=== PATIENT | female | born 1990 | race Caucasian/White ===

== ENCOUNTER 2017-09-06 18:05 | Emergency (ER) | payer OTHER ==
[~2017-09-06 18:05] MED LIST: QUET300T18 PO
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
[2017-09-06 18:57] LABS: PLATELET COUNT, AUTOMATED 291 K/uL (150-450)
[2017-09-06] MEDS ORDERED: NICOTINE 21 MG/24 HR PATCH TD ONE (19:10)
[2017-09-06 20:31] VITALS: BP 124/86
== END 2017-09-06 20:46 ==
LOC: ER 18:10
DX: R45.851 Suicidal ideations (principal); F32.9 Major depressive disorder, single episode, unspecified; F43.10 Post-traumatic stress disorder, unspecified; Z91.410 Personal history of adult physical and sexual abuse
CPT/HCPCS: 36415; 80305; 80320; 80329; 81001; 81025; 82040; 82247; 82310; 82374; 82435; 82565; 82947; 83735; 84075; 84132; 84155; 84295; 84443; 84450; 84460; 84520; 85025; 99284

== ENCOUNTER 2017-09-06 19:51 | Inpatient (IN) | payer OTHER ==
[~2017-09-06] VITALS: Ht 167.6 cm; Wt 52.2 kg
[2017-09-06] MEDS ORDERED: ACETAMINOPHEN 325 MG TAB PO PRN (20:50)
[2017-09-06] MEDS ORDERED: MAG HYD/AL HYD/SIMETH 30ML UDC PO PRN (20:50)
[2017-09-06] MEDS ORDERED: DIAZEPAM 10 MG TAB PO PRN (20:55)
[2017-09-06] MEDS ORDERED: DIAZEPAM 10 MG TAB PO ONE (22:00)
[2017-09-06] MEDS: NICOTINE CARTRIDGE 1 EA PO PRN (22:06)
[2017-09-06] MEDS: NICOTINE INH SYSTEM 10 MG/INH INH PRN (22:07)
[2017-09-06 23:16] VITALS: BP 120/72
[2017-09-07 06:34] VITALS: BP 120/70
[2017-09-07] MEDS: MULTIVITAMINS PO SCH (08:09)
[2017-09-07] MEDS ORDERED: NICOTINE 21 MG/24 HR PATCH TD SCH (09:00)
[2017-09-07] MEDS: NICOTINE INH SYSTEM 10 MG/INH INH PRN ×5 (09:36→17:09)
[2017-09-07] MEDS: NICOTINE CARTRIDGE 1 EA PO PRN ×2 (09:37→15:40)
[2017-09-07 11:00] VITALS: BP 104/72
[2017-09-07] MEDS ORDERED: NEOMYCIN/POLYMYX/BACITR 30 GM TP PRN (14:15)
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
[2017-09-07] MEDS: hydrOXYzine PAMOATE 25 MG CAP PO PRN ×2 (16:07→23:06)
[2017-09-07 17:50] VITALS: BP 112/60
[2017-09-07] MEDS ORDERED: PARoxetine HCL 20 MG TAB PO SCH (21:00)
[2017-09-08 06:20] VITALS: BP 112/66
[2017-09-08] MEDS: hydrOXYzine PAMOATE 25 MG CAP PO PRN (08:03)
[2017-09-08] MEDS: MULTIVITAMINS PO SCH (08:03)
[2017-09-08] MEDS: NICOTINE INH SYSTEM 10 MG/INH INH PRN ×2 (08:11→10:59)
--- NOTE | 2017-09-08 08:54 | BHS Progress Note ---
[facility] - Subjective Progress Notes Subjective "I need to get back to school." Requesting to be discharged, reports having nicotine withdrawal (use of nicotine inhaler) and needs to return to class Saturday09/09/17. Reports last suicidal ideation last night, discusses "If I could do it I would just call the administrative resident, but I'm not going to do that so no." Denies current suicidal ideation although states, "I have a hard time seeing a way out of this." Discussion of previous roommate the unhealthy relationship led to worsening depression. Lengthy review of outpatient follow up with established therapist, Ainsley Burch, appt. 09/10/17, EMDR as well as need for outpatient psychiatric provider. Reports Hydroxyzine for anxiety caused sedation, review Paxil risks, benefits, alternatives and she would like to continue to give fair trial. Suicidal Ideation: None Homicidal Ideation: None [facility] - Objective Physical Exam Muscle Strength and Tone: WNL Gait and Station: Steady [facility] Medications Reviewed: Side Effects, Benefits of Medication, Risks Allergies Reviewed: Yes Mental Status Exam General Appearance: Casual, Well Groomed, Good Eye Contact, Cooperative, Polite , Good Interaction Speech: Clear, Spontaneous, Normal Rate, Normal Rhythm, Normal Volume, Normal Tone Mood: Dysthmic/Depressed Affect: Full and Appropriate, Calm Thought Process: Organized Thought Content: Suicidal Ideation, Homicidal Ideation Cognition: Alert & Oriented-Person, Alert & Oriented-Place, Alert & Oriented- Time, [id number] Memory: Immediate, Recent Intelligence: Average Insight Judgment: Poor Lab Allergies Coded Allergies No Known Drug Allergies (Awievifoli63/8/17) [facility] Assessment and Plan [id number] Encounter Date: Sep 08, 2017 Avyn-[id number] Encounter Time: 11:30 [facility] Plan: Admit to Unit, Necessary Precautions, Individual/Group Therapy, Admin /Titrate Meds, Educate Patient Multpiple Antipsychotics Used: No Problems: (1) Posttraumatic stress disorder Status: Chronic (2) Alcohol use disorder, moderate, dependence Status: Chronic (3) Depression with suicidal ideation Status: Acute (4) Adjustment reaction with anxiety Status: Acute Condition Discharge against medical advice Risks associated with AMA discharge reviewed in length Encourage to abstain from etoh, illicit substances Encourage outpatient individual psychotherapy and medication management Appt. with Ainsley Burch 09/10/17, established therapist Crisis line # provided, encourage use for worsening symptoms Return to the emergency room for worsening symptoms, SI/HI. ANIYAH FLETCHER NP Sep 08, 2017 08:54
[2017-09-08] MEDS ORDERED: PATCH REMOVAL 1 EA TP SCH (09:00)
[2017-09-08] MEDS ORDERED: PARO-243 PO (12:45)
[2017-09-08] MEDS ORDERED: HYDR25CA83 PO (12:46)
[2017-09-08] MEDS ORDERED: NIC10R INH (12:46)
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
== END 2017-09-08 13:10 | disposition home or self-care (01) | DRG 882 ==
LOC: BHS 19:51
PROVIDERS: ADMIT Nurse Practitioner Psychiatric/Mental Health; ATTEND Nurse Practitioner Psychiatric/Mental Health
DX: F43.12 Post-traumatic stress disorder, chronic (principal); R45.851 Suicidal ideations; F10.10 Alcohol abuse, uncomplicated; F43.23 Adjustment disorder with mixed anxiety and depressed mood; S00.81XA Abrasion of other part of head, initial encounter; S60.512A Abrasion of left hand, initial encounter; S80.212A Abrasion, left knee, initial encounter; G89.29 Other chronic pain; W19.XXXA Unspecified fall, initial encounter; Y90.2 Blood alcohol level of 40-59 mg/100 ml; Z62.810 Personal history of physical and sexual abuse in childhood; Z62.811 Personal history of psychological abuse in childhood; Z53.29 Procedure and treatment not carried out because of patient's decision for other reasons; Z81.1 Family history of alcohol abuse and dependence; Z81.8 Family history of other mental and behavioral disorders; Z73.3 Stress, not elsewhere classified; Z55.8 Other problems related to education and literacy
CPT/HCPCS: Q0177

== ENCOUNTER 2018-02-12 20:37 | Emergency (ER) | payer OTHER ==
[~2018-02-12 20:37] MED LIST changes: +HYDR25CA83 PO; +NIC10R INH; +PARO-243 PO
--- NOTE | 2018-02-12 20:53 | ER Report ---
History and Physical Time Seen By MD: 20:53 Hx. of Stated Complaint: PT REPORTS HX OF PTSD, NOT TAKING ANY MEDS RIGHT NOW, REPORTS INTERMITTENT SI HPI/ROS CHIEF COMPLAINT: Anxiety and PTSD problems HISTORY OF PRESENT ILLNESS: This is a 27-year-old female. She's been having some problems with her PTSD, overriding anxiety and thoughts. She occasional have suicidal ideation but no plan and no thoughts that she would follow up on this. Thoughts of become a little bit intrusive at times. She did drink some alcohol last night which seemed to help. She's been on Paxil and hydroxyzine in the past and did not like the way these medicines work. She is also been on Seroquel in the past and did not like this medicine either she was wanting get on a new medicine but was not sure what to do. She is in the process of getting set up with a counselor here in town that she can follow-up with. She does not feel like she needs to be hospitalized tonight and has friends that she can reach out to if needed. Allergies: Coded Allergies: No Known Drug Allergies (Unverified , 02/12/18) Home Meds Active Scripts Lorazepam (ATIVAN) 0.5 Mg Tablet, 0.5 MG PO Q6H PRN for ANXIETY, #10 TAB 0 Refills Prov:EMMA GAMA MD 02/12/18 Discontinued Reported Medications Hydroxyzine Pamoate (VISTARIL) 25 Mg Capsule, 25 MG PO Q6H PRN for ANXIETY/INSOMNIA, CAPSULE 09/08/17 Nicotine (NICOTROL) 10 Mg/Inh Ctr, 10 MG INH PRN PRN for NICOTINE REPLACEMENT 09/08/17 Paroxetine Hcl (PAXIL) 20 Mg Tablet, 20 MG PO QHS, TAB 09/08/17 Reviewed Nurses Notes: Yes Hx Smoking: Yes Smoking Status: Current: Every Day Smoker, Heavy Tobacco Smoker Hx Substance Use Disorder: No Hx Alcohol Use: Yes Constitutional Vital Sign - Last 24 Hours 02/12/18 02/12/18 20:42 22:03 Temp 98.8 Pulse 98 99 Resp 18 18 B/P (MAP) 116/82 106/76 (86) Pulse Ox 96 95 O2 Delivery Room Air Room Air Physical Exam Gen.: Alert, no acute distress Normal speech pattern and content. Normal thought content and patterns. Intermittent suicidal ideation but none at this time. No thoughts of hurting herself or others. Affect is normal. No psychotic features noted Medical Decision Making ED Course/Re-evaluation ED Course I don't think the patient needs to be emergency detained. She has plans to follow-up as an outpatient and understands that she can return to the ER call if needed if she is having further problems. At this point I do not feel c omfortable starting a long-term medicine for her out of the ER. We did talk about using something to help with the severe anxiety. We decided on some Ativan and she does understand that this is not a medicine that would be used for long- term treatment and has some dependency risk associated with it. We will do a short course of this medicine while she is waiting begin with behavioral healt counselor. Decision to Disposition Date: Feb 12, 2018 Decision to Disposition Time: 21:47 Depart Departure Latest Vital Signs Vital Signs Date Time Temp Pulse Resp B/P (MAP) Pulse Ox O2 Delivery O2 Flow Rate FiO2 02/12/18 22:03 99 18 106/76 (86) 95 Room Air 02/12/18 20:42 98.8 Impression: Primary Impression: Anxiety Additional Impression: PTSD (post-traumatic stress disorder) Condition: Improved Disposition: HOME OR SELF-CARE New Scripts Lorazepam (ATIVAN) 0.5 Mg Tablet 0.5 MG PO Q6H PRN for ANXIETY, #10 TAB 0 Refills Prov: EMMA GAMA MD 02/12/18 Patient Instructions: Anxiety (ED), Post Traumatic Stress Disorder (ED) Additional Instructions: Please follow-up with behavioral health as planned for further treatment and discussion regarding vermin exterminator medications. Take Ativan 0.5mg tablets, one every 6 hours as needed for severe anxiety. Return to the ER if needed for worsening symptoms of depression or suicidal ideation Problem Qualifiers EMMA GAMA MD Feb 12, 2018 20:53
[2018-02-12] MEDS ORDERED: LORazepam 0.5 MG TAB PO ONE (21:45)
[2018-02-12] MEDS ORDERED: LORA-1455 PO (21:49)
[2018-02-12 22:03] VITALS: BP 106/76
== END 2018-02-12 22:00 | disposition home or self-care (01) ==
LOC: ER 20:59
DX: F43.10 Post-traumatic stress disorder, unspecified (principal); F41.9 Anxiety disorder, unspecified
CPT/HCPCS: 99283

== ENCOUNTER 2018-02-24 16:41 | Emergency (ER) | payer OTHER ==
[~2018-02-24 16:41] MED LIST changes: +LORA-1455 PO
--- NOTE | 2018-02-24 16:52 | ER Report ---
History and Physical Time Seen By MD: 16:52 Hx. of Stated Complaint: PT PRESENTS WITH REQUEST TO GETBACK ON HER PSYCH MEDS. HAS BEEN OFF OF THEM FOR 4 MONTHS, SHE WAS HAVING SIDE EFFECTS. NOW SHE NOTES ERRATIC BEHAVIOR WAS TAKING SEROQUEL HPI/ROS CHIEF COMPLAINT: Prescription refill HISTORY OF PRESENT ILLNESS: 27-year-old female patient presents to emergency room with complaint of difficulties concentrating, erratic behaviors. Patient states that she had been on Seroquel. She states that she has not gotten a refill over the past 4 months. She states that she was taking the Seroquel for bipolar as well as PTSD. She states she's noticed that she has been more lax with her alcohol use as well as her sexual behaviors. Patient states she does not feel that she needs any STD testing. Patient states that she had had some twitching with the Seroquel. She states that was part of the reason why she wanted to stop taking the medication. Allergies: Coded Allergies: No Known Drug Allergies (Unverified , 02/24/18) Home Meds Active Scripts Quetiapine Fumarate (SEROQUEL) 50 Mg Tablet, 50 MG PO QHS, #15 TAB Prov:AURE DAVILA 02/24/18 Discontinued Scripts Lorazepam (ATIVAN) 0.5 Mg Tablet, 0.5 MG PO Q6H PRN for ANXIETY, #10 TAB 0 Refills Prov:EMMA GAMA MD 02/12/18 Past Medical/Surgical History Patient has a past medical history of chronic abdominal pain, endometriosis, alcohol abuse, PTSD, bipolar depression. Patient has surgical history of abdominal surgery for endometriosis. Reviewed Nurses Notes: Yes Hx Smoking: Yes Smoking Status: Current: Every Day Smoker, Heavy Tobacco Smoker Hx Substance Use Disorder: No Hx Alcohol Use: Yes Constitutional Vital Sign - Last 24 Hours 02/24/18 02/24/18 16:45 17:25 Temp 98.1 Pulse 84 Resp 20 B/P (MAP) 114/73 117/79 (92) Pulse Ox 95 O2 Delivery Room Air Physical Exam General Appearance: The patient is alert, has no immediate need for airway protection and no current signs of toxicity. Respiratory: Chest is non tender, lungs are clear to auscultation. Cardiac: regular rate and rhythm Gastrointestinal: Abdomen is soft and tender, no masses, bowel sounds normal. Musculoskeletal: Neck: Neck is supple and non tender. Extremities have full range of motion and are non tender. Skin: No rashes or lesions. Psych: Patient is able to maintain good eye contact, rate speech is appropriate. DIFFERENTIAL DIAGNOSIS: After history and physical exam differential diagnosis was considered for depression, PTSD, bipolar. Medical Decision Making ED Course/Re-evaluation ED Course Patient was admitted to an exam room, history and physical were obtained. Differential diagnoses were considered. On examination lungs are clear, heart is regular, abdomen is soft and tender. Patient does maintain good eye contact, she has appropriate rate of speech. With patient having been on Seroquel the past likely for bipolar with her appearing to be in a hypomanic episode, where she has the risky sexual behaviors and increased irritability. I believe that Seroquel will be beneficial for her. We'll go ahead and place her back on 50 mg daily. I'll have her follow-up with a mental health provider at the [place]. She is to increase her fluid intake, get plenty of rest. She is to return to emergency room if condition worsens. I discussed this with the patient and she verbalized understanding and agreement with plan. Decision to Disposition Date: Feb 24, 2018 Decision to Disposition Time: 17:25 Depart Departure Latest Vital Signs Vital Signs Date Time Temp Pulse Resp B/P (MAP) Pulse Ox O2 Delivery O2 Flow Rate FiO2 02/24/18 17:25 117/79 (92) 02/24/18 16:45 98.1 84 20 95 Room Air Impression: Primary Impression: Posttraumatic stress disorder Additional Impression: Bipolar 1 disorder Condition: Improved Disposition: HOME OR SELF-CARE New Scripts Quetiapine Fumarate (SEROQUEL) 50 Mg Tablet 50 MG PO QHS, #15 TAB Prov: AURE DAVILA 02/24/18 Patient Instructions: Post Traumatic Stress Disorder (ED) Additional Instructions: Take your medication as prescribed. Return to the ER if condition worsens. Increase fluid intake. Follow up with your counselor but also with a mental health provider. Return to the ER if condition worsens. Problem Qualifiers AURE DAVILA Feb 24, 2018 16:52
[2018-02-24] MEDS ORDERED: QUET50TA21 PO (17:24)
[2018-02-24 17:25] VITALS: BP 117/79
== END 2018-02-24 17:32 | disposition home or self-care (01) ==
LOC: ER 17:03
DX: F43.10 Post-traumatic stress disorder, unspecified (principal); F31.9 Bipolar disorder, unspecified
CPT/HCPCS: 99281

== ENCOUNTER 2018-02-28 20:33 | Emergency (ER) | payer OTHER ==
[~2018-02-28 20:33] MED LIST changes: +QUET50TA21 PO
--- NOTE | 2018-02-28 20:42 | ER Report ---
History and Physical Time Seen By MD: 20:42 HPI/ROS CHIEF COMPLAINT: Medication request HISTORY OF PRESENT ILLNESS: This is a 27-year-old female who presents to the emergency department for a medication refill. Patient states that she's been increasing her Seroquel, did see student [facility] today they did give her prescription for 300mg XR Seroquel. Patient states that she didn't realize the prescription they had been written the extended release until she pick the prescription up this evening, she states that she does not do well with XR and does much better with the immediate release. Patient is here requesting at least enough to get her through the weekend until she follows up with [facility] next week. Patient does have the 300mg extended release medication with her. Patient has no other concerns, nausea or vomiting, no chest pain or shortness of breath, no fevers or chills. Allergies: Coded Allergies: No Known Drug Allergies (Unverified , 02/24/18) Home Meds Active Scripts Quetiapine Fumarate (SEROQUEL) 300 Mg Tablet, 300 MG PO HS for 7 Days, #7 TAB 0 Refills Prov:MISTI HERNANDEZ [facility]- 02/28/18 Quetiapine Fumarate (SEROQUEL) 50 Mg Tablet, 50 MG PO QHS, #15 TAB Prov:AURE DAVILA [facility] 02/24/18 Discontinued Scripts Lorazepam (ATIVAN) 0.5 Mg Tablet, 0.5 MG PO Q6H PRN for ANXIETY, #10 TAB 0 Refills Prov:EMMA GAMA MD 02/12/18 Past Medical/Surgical History Patient has a past medical and surgical history of abdominal pain, endometriosis, PTSD, depression and anxiety. Reviewed Nurses Notes: Yes Hx Smoking: Yes Smoking Status: Current: Every Day Smoker, Heavy Tobacco Smoker Hx Substance Use Disorder: No Hx Alcohol Use: Yes (BINGES ONCE A WEEK) Constitutional Vital Sign - Last 24 Hours 02/28/18 20:47 Temp 98.9 Pulse 124 B/P (MAP) 116/74 (88) Pulse Ox 97 O2 Delivery Room Air Physical Exam General appearance: Alert no distress. Respiratory: Chest is non tender, lungs are clear to auscultation. Cardiac: Regular rate and rhythm. DIFFERENTIAL DIAGNOSIS: After history and physical exam differential diagnosis was considered for depression and anxiety. Medical Decision Making ED Course/Re-evaluation ED Course The patient was admitted to a room. History physical obtained. The patient states that [facility] ended up prescribing her extended release, when she picked this up she states it was too late to have [facility] change the prescription from XR to immediate release. The patient states that the extended release does cause some adverse reactions, she does significantly better with the immediate release. Patient is requesting Seroquel immediate release, 300 mg. I did write a prescription for the patient, for 7, she will follow up with [facility] next week and have them adjust the XR to immediate release. Patient will return to the ER for any other concerns or worsening symptoms. Decision to Disposition Date: Feb 28, 2018 Decision to Disposition Time: 20:49 Depart Departure Latest Vital Signs Vital Signs Date Time Temp Pulse Resp B/P (MAP) Pulse Ox O2 Delivery O2 Flow Rate FiO2 02/28/18 20:47 98.9 124 116/74 (88) 97 Room Air Impression: Primary Impression: Medication refill Condition: Improved Disposition: HOME OR SELF-CARE New Scripts Quetiapine Fumarate (SEROQUEL) 300 Mg Tablet 300 MG PO HS for 7 Days, #7 TAB 0 Refills Prov: MISTI HERNANDEZ-ADOLFO 02/28/18 Patient Instructions: Anxiety (ED) Additional Instructions: Be sure to take the Seroquel as prescribed. Follow up with [facility] next week, have them adjust your medication from the extended release to the immediate release. Drink plenty of water. Get plenty of rest. Return to the ED for any other concerns or worsening symptoms. MISTI HERNANDEZ [employer]EC[employer]-BC Feb 28, 2018 20:42
[2018-02-28 20:47] VITALS: BP 116/74
[2018-02-28] MEDS ORDERED: QUET300T18 PO (20:52)
[2018-02-28] MEDS ORDERED: QUEtiapine FUM 100 MG TAB PO SCH (21:00)
== END 2018-02-28 21:32 | disposition home or self-care (01) ==
LOC: ER 20:48
DX: Z76.0 Encounter for issue of repeat prescription (principal); F17.210 Nicotine dependence, cigarettes, uncomplicated; F43.10 Post-traumatic stress disorder, unspecified; F32.9 Major depressive disorder, single episode, unspecified; F41.9 Anxiety disorder, unspecified
CPT/HCPCS: 99281

== ENCOUNTER 2018-03-17 00:39 | Emergency (ER) | payer OTHER ==
[2018-03-17 00:40] VITALS: BP 140/70
--- NOTE | 2018-03-17 00:44 | ER Report ---
History and Physical Time Seen By MD: 00:39 HPI/ROS CHIEF COMPLAINT: [facility] clearance HISTORY OF PRESENT ILLNESS: 27-year-old female brought in by police for intermediate clearance. She appears grossly alcohol intoxicated. She is yelling profanity. She voices no complaints. She denies significant past medical history REVIEW OF SYSTEMS: Respiratory: No cough, no dyspnea. Cardiovascular: No chest pain, no palpitations. Gastrointestinal: No vomiting, no abdominal pain. Musculoskeletal: No back pain. Allergies: Coded Allergies: No Known Drug Allergies (Unverified , 03/17/18) Home Meds Active Scripts Quetiapine Fumarate (SEROQUEL) 300 Mg Tablet, 300 MG PO HS for 7 Days, #7 TAB 0 Refills Prov:ERIKOLIVEMISTI WALTERS Pearl [employer] HABILITATION SPECIALIST-BC 02/28/18 Quetiapine Fumarate (SEROQUEL) 50 Mg Tablet, 50 MG PO QHS, #15 TAB Prov:AURE DAVILA DAY HABILITATION SPECIALIST 02/24/18 Past Medical/Surgical History Previous admission to behavioral health services for suicidal ideation 08/28 Reviewed Nurses Notes: Yes Old Medical Records Reviewed: Yes Hx Smoking: Yes Smoking Status: Current: Every Day Smoker, Heavy Tobacco Smoker Hx Substance Use Disorder: No Hx Alcohol Use: Yes (BINGES ONCE A WEEK) Constitutional Vital Sign - Last 24 Hours 03/17/18 00:40 Temp 98.3 Pulse 122 Resp 16 B/P (MAP) 140/70 Pulse Ox 90 O2 Delivery Room Air Physical Exam General Appearance: The patient is alert, has no immediate need for airway protection and no current signs of toxicity. Palpation of the head and neck reveal no tenderness or trauma HEENT: Pupils equal and round no injection. TMs normal, oropharynx without red ness or exudate, no dental trauma Respiratory: Chest is non tender, lungs are clear to auscultation. Cardiac: regular rate and rhythm Gastrointestinal: Abdomen is soft and non tender, no masses, bowel sounds normal. Musculoskeletal: Neck: Neck is supple and non tender. No lymphadenopathy Extremities have full range of motion and are non tender. Skin: No rashes or lesions. DIFFERENTIAL DIAGNOSIS: After history and physical exam differential diagnosis was considered for alcohol intoxication, intermediate clearance, polysubstance abuse Medical Decision Making ED Course/Re-evaluation ED Course Patient was admitted to an examination room. H&P was done. The differential diagnoses was considered. On clinical examination patient has no findings. Vital signs are stable. Patient voices no complaints. She is medically cleared for intermediate admission. Decision to Disposition Date: Mar 17, 2018 Decision to Disposition Time: 00:43 Depart Departure Latest Vital Signs Vital Signs Date Time Temp Pulse Resp B/P (MAP) Pulse Ox O2 Delivery O2 Flow Rate FiO2 03/17/18 00:40 98.3 122 16 140/70 90 Room Air Impression: Primary Impression: Medical clearance for incarceration Additional Impression: Alcohol intoxication Condition: Improved Disposition: [facility] TO ALF/CORRECTIONAL F Patient Instructions: Alcohol Intoxication (ED) Additional Instructions: Medical cleared for intermediate admission Problem Qualifiers Additional Impression: Alcohol intoxication Complication of substance-induced condition: uncomplicated Qualified Codes: F10.920 - Alcohol use, unspecified with intoxication, uncomplicated RAMSES SIU DO Mar 17, 2018 00:44
== END 2018-03-17 00:49 ==
LOC: ER 00:42
DX: F10.920 Alcohol use, unspecified with intoxication, uncomplicated (principal)
CPT/HCPCS: 99281